=== PATIENT | female | born 1945 | race Caucasian/White ===

== ENCOUNTER 2021-01-29 14:54 | Inpatient (IN) ==
[2021-01-29] MEDS ORDERED: ONDANSETRON 4 MG/2 ML VIAL IV STA (15:26)
[2021-01-29] MEDS ORDERED: HYDROmorphone 2 MG/1 ML VIAL IV STA (15:26)
[2021-01-29] MEDS ORDERED: SODIUM CHLORIDE 0.9% 1,000 ML IV STA (15:26)
[2021-01-29 15:46] LABS: Basophils % 0.6 % (0.0-0.8); Eosinophils # 0.1 10*3/uL (0.0-0.87); Eosinophils % 1.6 % (0.00-10.9); Hematocrit 40.3 VOL% (35.7-47.0); Hemoglobin 12.7 GM/DL (12.0-16.0); Immature Granulocytes % 0.7 %; Immature Granulocytes Absolute 0.05 #; Lymphocytes # 1.8 10*3/uL (1.4-4.0); Lymphocytes % 26.2 % (21.3-54.2); Mean Corpuscular HGB Conc 31.5 GM/DL (32-36); Mean Corpuscular Volume 83.8 FL (87-102); Mean Platelet Volume 11.3 FL (9.6-12.0); Monocytes % 6.6 % (1.7-12.7); Neutrophils % 64.3 % (38.7-73.9); Platelet Count 179 T/CUMM (130-400); Red Blood Count 4.81 MC/CUMM (3.8-5.5); Red Cell Distribution Width 15.3 % (9.3-17.3); White Blood Count 6.7 T/CUMM (4-12)
[2021-01-29 15:49] LABS: Bilirubin,Urine Negative (Negative); Blood, Urine Negative (Negative); Glucose,Urine (UA) Negative (Negative); Ketones,Urine Negative (Negative); Mucus,Urine Occasional /LPF (Occasional); Nitrite,Urine Negative (Negative); Protein,Urine Negative; RBC,Urine 1 /HPF (0-4); Squamous Epithelial Cell,Urine Occasional /HPF (0-10); Urine Appearance CLEAR (Clear); Urine Color Yellow (Yellow); Urine Specific Gravity 1.015 (1.001-1.035); Urine Urobilinogen < 2.0 EU/DL (0.2-1.0)
[2021-01-29 15:57] LABS: PT Patient Result 11.2 SECS (10.5-12.0)
[2021-01-29 16:06] LABS: Alanine Aminotransferase 29 U/L (13-56); Albumin 3.3 G/DL (3.4-5.0); Alkaline Phosphatase 87 U/L (45-117); Aspartate Amino Transferase 20 U/L (0-37); Bilirubin,Total < 0.39 MG/DL (0.20-1.00); Blood Urea Nitrogen 15 MG/DL (7-18); Calcium 9.6 MG/DL (8.5-10.1); Carbon Dioxide 31 MMOL/L (21-32); Estimated Glom Filtration Rate 51 ML/MIN; Glucose 123 MG/DL (74-106); Osmolality,Calculated 276.7 MOS/KG (273-304); Potassium 4.1 MMOL/L (3.5-5.1); Sodium 138 MMOL/L (136-145); Total Protein 7.2 G/DL (6.4-8.2)
[2021-01-29] MEDS ORDERED: NICOTINE 21 MG/24 HR PATCH TRANSDERM PRN (16:08)
[2021-01-29] MEDS ORDERED: guaiFENesin/DM ER 600-30 MG TABLET PO PRN (16:08)
[2021-01-29] MEDS ORDERED: DEXTROSE 50% 25 GM/50 ML VIAL IV PRN (16:08)
[2021-01-29] MEDS ORDERED: GLUCAGON 1 MG VIAL IM PRN (16:08)
[2021-01-29] MEDS ORDERED: hydrALAZINE 20 MG/1 ML VIAL IV PRN (16:08)
[2021-01-29] MEDS ORDERED: diphenhydrAMINE CAP 25 MG CAPSULE PO PRN (16:08)
[2021-01-29] MEDS ORDERED: ONDANSETRON 4 MG/2 ML VIAL IV PRN (16:08)
[2021-01-29] MEDS ORDERED: MORPHINE 2 MG/1 ML SYRINGE IV PRN (16:08)
[2021-01-29] MEDS: PANTOPRAZOLE 40 MG TABLET PO SCH (16:39)
[2021-01-30 05:20] LABS: Basophils % 0.5 % (0.0-0.8); Eosinophils % 0.5 % (0.00-10.9); Hematocrit 34.2 VOL% (35.7-47.0); Hemoglobin 10.6 GM/DL (12.0-16.0); Immature Granulocytes % 0.6 %; Immature Granulocytes Absolute 0.04 #; Lymphocytes % 15.1 % (21.3-54.2); Mean Corpuscular Volume 84.9 FL (87-102); Monocytes % 7.6 % (1.7-12.7); Neutrophils % 75.7 % (38.7-73.9); Platelet Count 163 T/CUMM (130-400); Red Blood Count 4.03 MC/CUMM (3.8-5.5); Red Cell Distribution Width 15.5 % (9.3-17.3); White Blood Count 6.6 T/CUMM (4-12)
[2021-01-30 05:34] LABS: Calcium 8.7 MG/DL (8.5-10.1); Potassium 4.3 MMOL/L (3.5-5.1)
[2021-01-30] MEDS ORDERED: MIDAZOLAM 2 MG/2 ML VIAL ONE (06:26)
[2021-01-30] MEDS ORDERED: BUPIVACAINE SPINAL 0.75% 2 ML AMP SPINAL ONE (06:26)
[2021-01-30] MEDS ORDERED: DEXMEDETOMIDINE 200 MCG/2 ML VIAL ONE (06:26)
[2021-01-30] MEDS ORDERED: TRANEXAMIC ACID 1,000 MG/10 ML VIAL ONE (06:26)
[2021-01-30] MEDS ORDERED: ONDANSETRON 4 MG/2 ML VIAL ONE (06:26)
[2021-01-30] MEDS ORDERED: ceFAZolin 2,000 MG/50 ML DUPLEX IV ONE (07:00)
[2021-01-30] MEDS ORDERED: KETAMINE 500 MG/10 ML VIAL ONE (07:25)
[2021-01-30] MEDS ORDERED: MAGNESIUM HYDROXIDE SUSP 30 ML UDCUP PO PRN (07:25)
[2021-01-30] MEDS ORDERED: BISACODYL 10 MG SUPP RECTAL PRN (07:26)
[2021-01-30] MEDS ORDERED: LACTULOSE 20 GM/30 ML UDCUP PO PRN (07:26)
[2021-01-30] MEDS ORDERED: MORPHINE 2 MG/1 ML SYRINGE IV PRN ×2 (07:30→07:36)
[2021-01-30] MEDS ORDERED: DEXAMETHASONE 4 MG/1 ML VIAL ONE (08:52)
[2021-01-30] MEDS ORDERED: BUPIVACAINE 0.5% 50 ML VIAL ONE (08:53)
[2021-01-30] MEDS ORDERED: ePHEDrine 50 MG/ML VIAL ONE (09:17)
[2021-01-30] MEDS ORDERED: ePHEDrine 50 MG/ML VIAL IV ONE (09:21)
[2021-01-30] MEDS: LACTATED RINGERS 1,000 ML IV SCH (09:31)
[2021-01-30] MEDS: PANTOPRAZOLE 40 MG TABLET PO SCH ×2 (09:33→09:38)
[2021-01-30] MEDS ORDERED: ALBUMIN 5% 12.5 GM/250 ML VIAL IV ONE ×2 (09:50→11:30)
[2021-01-30] MEDS ORDERED: TUBERCULIN SKIN TEST 0.1 ML SYRINGE INTRADERM ONE (17:37)
[2021-01-30] MEDS: FONDAPARINUX 2.5 MG/0.5 ML SYRINGE SUBCUT SCH (17:56)
[2021-01-30] MEDS: ARIPiprazole 5 MG TABLET PO SCH (20:57)
[2021-01-30] MEDS: SERTRALINE 100 MG TABLET PO SCH (20:57)
[2021-01-30] MEDS: DONEPEZIL 10 MG TABLET PO SCH (20:57)
[2021-01-30] MEDS: BENZTROPINE 1 MG TABLET PO SCH (20:57)
[2021-01-30] MEDS: SIMVASTATIN 10 MG TABLET PO SCH (20:58)
[2021-01-30] MEDS: GLUCOSAMINE SULFATE 500 MG PO SCH (22:47)
[2021-01-30] MEDS: ZALEPLON 5 MG CAPSULE PO PRN (23:42)
[2021-01-31 04:21] LABS: Basophils % 0.1 % (0.0-0.8); Hematocrit 28.3 VOL% (35.7-47.0); Hemoglobin 8.6 GM/DL (12.0-16.0); Immature Granulocytes % 0.7 %; Immature Granulocytes Absolute 0.05 #; Lymphocytes # 0.9 10*3/uL (1.4-4.0); Lymphocytes % 12.8 % (21.3-54.2); Mean Corpuscular HGB Conc 30.4 GM/DL (32-36); Mean Corpuscular Volume 87.6 FL (87-102); Mean Platelet Volume 11.7 FL (9.6-12.0); Monocytes % 7.4 % (1.7-12.7); Platelet Count 134 T/CUMM (130-400); Red Blood Count 3.23 MC/CUMM (3.8-5.5); Red Cell Distribution Width 15.6 % (9.3-17.3)
[2021-01-31 04:34] LABS: Calcium 8.5 MG/DL (8.5-10.1); Osmolality,Calculated 276.7 MOS/KG (273-304); Potassium 4.2 MMOL/L (3.5-5.1)
[2021-01-31] MEDS: LACTATED RINGERS 1,000 ML IV SCH (05:42)
[2021-01-31] MEDS: DOCUSATE SODIUM 100 MG CAPSULE PO PRN (09:29)
[2021-01-31] MEDS: CALCIUM (CARBONATE) 500 MG TABLET PO SCH ×2 (09:29→17:27)
[2021-01-31] MEDS: FERROUS SULFATE 325 MG TABLET PO SCH (09:29)
[2021-01-31] MEDS: PANTOPRAZOLE 40 MG TABLET PO SCH ×2 (09:29→09:33)
[2021-01-31] MEDS: FOLIC ACID 1 MG TABLET PO SCH (09:30)
[2021-01-31] MEDS: ASPIRIN EC 81 MG TABLET PO SCH (09:30)
[2021-01-31] MEDS: GLUCOSAMINE SULFATE 500 MG PO SCH ×2 (09:33→22:13)
[2021-01-31] MEDS: FONDAPARINUX 2.5 MG/0.5 ML SYRINGE SUBCUT SCH (17:27)
[2021-01-31] MEDS: SERTRALINE 100 MG TABLET PO SCH (21:32)
[2021-01-31] MEDS: BENZTROPINE 1 MG TABLET PO SCH (21:32)
[2021-01-31] MEDS: ZALEPLON 5 MG CAPSULE PO PRN (21:32)
[2021-01-31] MEDS: DONEPEZIL 10 MG TABLET PO SCH (21:32)
[2021-01-31] MEDS: ARIPiprazole 5 MG TABLET PO SCH (21:32)
[2021-01-31] MEDS: SIMVASTATIN 10 MG TABLET PO SCH (21:33)
[2021-02-01 05:45] LABS: Basophils % 0.5 % (0.0-0.8); Eosinophils # 0.2 10*3/uL (0.0-0.87); Eosinophils % 2.9 % (0.00-10.9); Hematocrit 24.7 VOL% (35.7-47.0); Hemoglobin 7.7 GM/DL (12.0-16.0); Immature Granulocytes % 0.5 %; Immature Granulocytes Absolute 0.03 #; Lymphocytes # 1.4 10*3/uL (1.4-4.0); Lymphocytes % 24.2 % (21.3-54.2); Mean Corpuscular HGB Conc 31.2 GM/DL (32-36); Mean Corpuscular Volume 86.1 FL (87-102); Mean Platelet Volume 11.4 FL (9.6-12.0); Monocytes % 8.4 % (1.7-12.7); Neutrophils % 63.5 % (38.7-73.9); Platelet Count 121 T/CUMM (130-400); Red Blood Count 2.87 MC/CUMM (3.8-5.5); Red Cell Distribution Width 15.6 % (9.3-17.3); White Blood Count 5.6 T/CUMM (4-12)
[2021-02-01] MEDS ORDERED: SODIUM CHLORIDE 0.9% 1,000 ML IV PRN (08:43)
[2021-02-01] MEDS: PANTOPRAZOLE 40 MG TABLET PO SCH ×2 (08:58→08:59)
[2021-02-01] MEDS: FOLIC ACID 1 MG TABLET PO SCH (08:58)
[2021-02-01] MEDS: FERROUS SULFATE 325 MG TABLET PO SCH (08:58)
[2021-02-01] MEDS: GLUCOSAMINE SULFATE 500 MG PO SCH ×2 (08:59→22:44)
[2021-02-01] MEDS: CALCIUM (CARBONATE) 500 MG TABLET PO SCH ×2 (08:59→17:26)
[2021-02-01] MEDS: DOCUSATE SODIUM 100 MG CAPSULE PO PRN (08:59)
[2021-02-01] MEDS: ASPIRIN EC 81 MG TABLET PO SCH (08:59)
[2021-02-01] MEDS: ACETAMINOPHEN 325 MG TABLET PO PRN ×2 (14:38→21:36)
[2021-02-01] MEDS: diphenhydrAMINE 50 MG/1 ML VIAL IV PRN ×2 (14:38→21:36)
[2021-02-01] MEDS: LACTULOSE 20 GM/30 ML UDCUP PO SCH ×2 (17:14→20:35)
[2021-02-01] MEDS: FONDAPARINUX 2.5 MG/0.5 ML SYRINGE SUBCUT SCH (17:27)
[2021-02-01] MEDS: ARIPiprazole 5 MG TABLET PO SCH (20:34)
[2021-02-01] MEDS: SIMVASTATIN 10 MG TABLET PO SCH (20:35)
[2021-02-01] MEDS: SERTRALINE 100 MG TABLET PO SCH (20:35)
[2021-02-01] MEDS: BENZTROPINE 1 MG TABLET PO SCH (20:35)
[2021-02-01] MEDS: DONEPEZIL 10 MG TABLET PO SCH (20:35)
[2021-02-02] MEDS: FOLIC ACID 1 MG TABLET PO SCH (08:15)
[2021-02-02] MEDS: FERROUS SULFATE 325 MG TABLET PO SCH (08:15)
[2021-02-02] MEDS: ASPIRIN EC 81 MG TABLET PO SCH (08:15)
[2021-02-02] MEDS: PANTOPRAZOLE 40 MG TABLET PO SCH (08:16)
[2021-02-02] MEDS: CALCIUM (CARBONATE) 500 MG TABLET PO SCH ×2 (08:16→16:27)
[2021-02-02] MEDS: LACTULOSE 20 GM/30 ML UDCUP PO SCH ×2 (08:17→21:24)
[2021-02-02 08:24] LABS: Hematocrit 33.3 VOL% (35.7-47.0)
[2021-02-02 08:25] LABS: Hemoglobin 10.7 GM/DL (12.0-16.0)
[2021-02-02 09:01] LABS: Calcium 8.5 MG/DL (8.5-10.1); Osmolality,Calculated 273.8 MOS/KG (273-304); Potassium 4.1 MMOL/L (3.5-5.1)
[2021-02-02] MEDS: GLUCOSAMINE 500 MG TABLET PO SCH ×2 (10:04→21:24)
[2021-02-02] MEDS ORDERED: ALENDRONATE 70 MG PO SCH (17:03)
[2021-02-02] MEDS: ARIPiprazole 5 MG TABLET PO SCH (21:23)
[2021-02-02] MEDS: SIMVASTATIN 10 MG TABLET PO SCH (21:24)
[2021-02-02] MEDS: BENZTROPINE 1 MG TABLET PO SCH (21:24)
[2021-02-02] MEDS: diphenhydrAMINE 50 MG/1 ML VIAL IV PRN (21:24)
[2021-02-02] MEDS: SERTRALINE 100 MG TABLET PO SCH (21:24)
[2021-02-02] MEDS: DONEPEZIL 10 MG TABLET PO SCH (21:24)
[2021-02-03 08:00] LABS: Basophils % 0.6 % (0.0-0.8); Eosinophils # 0.1 10*3/uL (0.0-0.87); Eosinophils % 2.3 % (0.00-10.9); Hematocrit 33.2 VOL% (35.7-47.0); Hemoglobin 10.5 GM/DL (12.0-16.0); Immature Granulocytes % 1.5 %; Immature Granulocytes Absolute 0.08 #; Lymphocytes # 0.9 10*3/uL (1.4-4.0); Lymphocytes % 16.4 % (21.3-54.2); Mean Corpuscular HGB Conc 31.6 GM/DL (32-36); Mean Corpuscular Volume 84.5 FL (87-102); Mean Platelet Volume 10.5 FL (9.6-12.0); Monocytes % 8.2 % (1.7-12.7); Platelet Count 146 T/CUMM (130-400); Red Blood Count 3.93 MC/CUMM (3.8-5.5); Red Cell Distribution Width 14.9 % (9.3-17.3); White Blood Count 5.3 T/CUMM (4-12)
[2021-02-03 08:16] LABS: Calcium 8.5 MG/DL (8.5-10.1); Osmolality,Calculated 276.7 MOS/KG (273-304)
[2021-02-03] MEDS: LACTULOSE 20 GM/30 ML UDCUP PO SCH ×2 (09:29→21:51)
[2021-02-03] MEDS: FOLIC ACID 1 MG TABLET PO SCH (09:29)
[2021-02-03] MEDS: PANTOPRAZOLE 40 MG TABLET PO SCH (09:29)
[2021-02-03] MEDS: FERROUS SULFATE 325 MG TABLET PO SCH (09:30)
[2021-02-03] MEDS: CALCIUM (CARBONATE) 500 MG TABLET PO SCH ×2 (09:30→17:32)
[2021-02-03] MEDS: GLUCOSAMINE 500 MG TABLET PO SCH ×2 (09:30→21:53)
[2021-02-03] MEDS: ASPIRIN EC 81 MG TABLET PO SCH (09:30)
[2021-02-03] MEDS: SERTRALINE 100 MG TABLET PO SCH (21:51)
[2021-02-03] MEDS: DONEPEZIL 10 MG TABLET PO SCH (21:52)
[2021-02-03] MEDS: SIMVASTATIN 10 MG TABLET PO SCH (21:52)
[2021-02-03] MEDS: ARIPiprazole 5 MG TABLET PO SCH (21:52)
[2021-02-03] MEDS: BENZTROPINE 1 MG TABLET PO SCH (21:55)
[2021-02-04 06:05] LABS: Calcium 8.3 MG/DL (8.5-10.1); Osmolality,Calculated 276.7 MOS/KG (273-304); Potassium 3.8 MMOL/L (3.5-5.1)
[2021-02-04 07:09] LABS: Basophils % 0.6 % (0.0-0.8); Eosinophils # 0.1 10*3/uL (0.0-0.87); Eosinophils % 2.7 % (0.00-10.9); Hematocrit 32.9 VOL% (35.7-47.0); Hemoglobin 10.2 GM/DL (12.0-16.0); Immature Granulocytes % 1.8 %; Immature Granulocytes Absolute 0.09 #; Lymphocytes # 1.2 10*3/uL (1.4-4.0); Lymphocytes % 23.9 % (21.3-54.2); Mean Corpuscular Volume 86.1 FL (87-102); Mean Platelet Volume 11.1 FL (9.6-12.0); Monocytes % 9.6 % (1.7-12.7); Neutrophils % 61.4 % (38.7-73.9); Platelet Count 162 T/CUMM (130-400); Red Blood Count 3.82 MC/CUMM (3.8-5.5); Red Cell Distribution Width 15.4 % (9.3-17.3); White Blood Count 5.1 T/CUMM (4-12)
[2021-02-04] MEDS: GLUCOSAMINE 500 MG TABLET PO SCH ×2 (08:52→22:21)
[2021-02-04] MEDS: CALCIUM (CARBONATE) 500 MG TABLET PO SCH ×2 (08:52→17:33)
[2021-02-04] MEDS: PANTOPRAZOLE 40 MG TABLET PO SCH (08:52)
[2021-02-04] MEDS: ASPIRIN EC 81 MG TABLET PO SCH (08:52)
[2021-02-04] MEDS: LACTULOSE 20 GM/30 ML UDCUP PO SCH ×2 (08:52→23:18)
[2021-02-04] MEDS: FERROUS SULFATE 325 MG TABLET PO SCH (08:52)
[2021-02-04] MEDS: FOLIC ACID 1 MG TABLET PO SCH (08:52)
[2021-02-04] MEDS: ARIPiprazole 5 MG TABLET PO SCH (22:20)
[2021-02-04] MEDS: SERTRALINE 100 MG TABLET PO SCH (22:20)
[2021-02-04] MEDS: ZALEPLON 5 MG CAPSULE PO PRN (22:20)
[2021-02-04] MEDS: SIMVASTATIN 10 MG TABLET PO SCH (22:21)
[2021-02-04] MEDS: DONEPEZIL 10 MG TABLET PO SCH (22:21)
[2021-02-04] MEDS: BENZTROPINE 1 MG TABLET PO SCH (22:21)
[2021-02-04 22:49] LABS: Bacteria,Urine Occasional /HPF (Few); Bilirubin,Urine Negative (Negative); Blood, Urine Negative (Negative); Glucose,Urine (UA) Negative (Negative); Ketones,Urine Negative (Negative); Nitrite,Urine Negative (Negative); Protein,Urine Negative; RBC,Urine 2 /HPF (0-4); Squamous Epithelial Cell,Urine Occasional /HPF (0-10); Urine Appearance CLEAR (Clear); Urine Color Yellow (Yellow); Urine Specific Gravity 1.006 (1.001-1.035); Urine Urobilinogen < 2.0 EU/DL (0.2-1.0)
[2021-02-05 07:45] LABS: Basophils % 0.8 % (0.0-0.8); Eosinophils # 0.2 10*3/uL (0.0-0.87); Eosinophils % 3.1 % (0.00-10.9); Hematocrit 33.1 VOL% (35.7-47.0); Hemoglobin 10.4 GM/DL (12.0-16.0); Immature Granulocytes % 2.9 %; Immature Granulocytes Absolute 0.14 #; Lymphocytes % 20.1 % (21.3-54.2); Mean Corpuscular HGB Conc 31.4 GM/DL (32-36); Mean Corpuscular Volume 86.2 FL (87-102); Mean Platelet Volume 10.4 FL (9.6-12.0); Monocytes % 9.9 % (1.7-12.7); Neutrophils % 63.2 % (38.7-73.9); Platelet Count 181 T/CUMM (130-400); Red Blood Count 3.84 MC/CUMM (3.8-5.5); Red Cell Distribution Width 15.4 % (9.3-17.3); White Blood Count 4.9 T/CUMM (4-12)
[2021-02-05 08:12] LABS: Calcium 8.9 MG/DL (8.5-10.1); Potassium 4.1 MMOL/L (3.5-5.1)
[2021-02-05] MEDS: LACTULOSE 20 GM/30 ML UDCUP PO SCH (08:18)
[2021-02-05] MEDS: PANTOPRAZOLE 40 MG TABLET PO SCH (08:18)
[2021-02-05] MEDS: CALCIUM (CARBONATE) 500 MG TABLET PO SCH (08:18)
[2021-02-05] MEDS: ASPIRIN EC 81 MG TABLET PO SCH (08:18)
[2021-02-05] MEDS: FOLIC ACID 1 MG TABLET PO SCH (08:18)
[2021-02-05] MEDS: FERROUS SULFATE 325 MG TABLET PO SCH (08:18)
[2021-02-05] MEDS: GLUCOSAMINE 500 MG TABLET PO SCH (08:18)
[2021-02-05 11:30] VITALS: BP 131/48
== END 2021-02-05 14:40 | disposition swing bed (61) | DRG 481 ==
LOC: EDBD → EDUNIT# → N.ED 14:54 → N.EDINP 16:08 → SUATTDRO 16:08 → N.EDINP 17:18 → N.3E 17:49
PROVIDERS: ADMIT Internal Medicine; ATTEND Internal Medicine